=== PATIENT | female | born 1950 | race Caucasian/White ===

== ENCOUNTER 2021-04-06 15:25 | Emergency (ER) | payer SELFPAY ==
[~2021-04-06] VITALS: Ht 167.6 cm; Wt 63.0 kg
[2021-04-06 18:46] LABS: BASO % 0.2 % (0.0-2.0); GRAN # 11.1 K/mm3 (1.4-6.5); GRAN % 80.2 % (42.2-75.2); HEMOGLOBIN 13.2 g/dl (12.5-16.0); LYMPH # 1.2 K/mm3 (1.2-3.4); LYMPH % 8.7 % (20.0-51.0); MEAN CELL VOLUME 87 fl (80.0-100.0); MEAN CORPUSCULAR HEMOGLOBIN 30 pg (27-31); MEAN CORPUSCULAR HGB CONC 35 g/dl (33.0-37.0); MEAN PLATELET VOLUME 9.5 fl (7.4-10.4); MONO # 1.4 K/mm3 (0.1-0.6); MONO % 10.4 % (1.7-9.3); PLATELET COUNT 236 K/mm3 (130-400); RED BLOOD COUNT 4.39 M/mm3 (4.10-5.30); REDCELL DISTRIBUTION WIDTH-CV 12.6 % (11.5-14.5)
[2021-04-06] MEDS ORDERED: PERCOCET 325 MG1 TA2 PO (18:58)
[2021-04-06 19:15] VITALS: BP 148/64; PULSE 74; TEMP 98.9
== END 2021-04-06 19:15 | disposition home or self-care (01) ==
LOC: COL.ER 15:25
PROVIDERS: Family Medicine
DX: M25.511 Pain in right shoulder (principal); D72.829 Elevated white blood cell count, unspecified; I10 Essential (primary) hypertension; E11.9 Type 2 diabetes mellitus without complications
CPT/HCPCS: J1885; J3360